=== PATIENT | male | born 1970 | race Caucasian/White ===

== ENCOUNTER → 2019-09-12 | Outpatient (CLI) | payer OTHER ==
[2016-02-12 23:26] VITALS: BP 133/86
[~2019-09-12] MED LIST: BACTRIM DS 8001 TA1 PO; CELEBREX 200MG200 MG PO; FLEXERIL10 MG PO; MUSCLE RELAXER; NORCO 325 MG-51 TA1 PO; NORCO 325 MG-7.1 TA1 PO; PAIN MEDICATION
== END ==
LOC: RAD 09:02
DX: S69.91XA Unspecified injury of right wrist, hand and finger(s), initial encounter (principal)